=== PATIENT | male | born 1995 | race Caucasian/White ===

== ENCOUNTER 2019-11-30 12:44 | Outpatient (CLI) | payer BC ==
--- NOTE | 2019-11-30 13:50 | MRI ---
MR OF THE RIGHT KNEE WITHOUT CONTRAST INDICATION: 24-year-old male with concern for ACL rupture and MCL tear TECHNIQUE: Axial and coronal PD fat sat, sagittal T2 fat sat, sagittal PD turbo spin echo and T1 tyler nal images were obtained of the right knee. COMPARISON: Right knee radiograph dated November 09, 2019 FINDINGS: Joint effusion: Moderate size joint effusion Semimembranosus-medial gastrocnemius popliteal cyst: None. Ligaments: There is a grade 2 sprain involving the anterior and mid aspect of the MCL. The LCLC appea r intact. The ACL is completely disrupted. The PCL is intact. Extensor mechanism: Intact. Menisci: There is obliquely oriented horizontal tear involving the posterior junction and posterior r oot of the lateral meniscus. The medial meniscus appears intact. Articular cartilage: There is a pivot shift contusion involving the lateral femoral condyle and poste rior tibial plateau. There is also mild contusion involving the proximal fibular head. Osseous structures: As above Popliteus and IT band: Normal. IMPRESSION: 1. Complete ACL disruption. 2. Lateral meniscal tear 3. Grade 2 MCL sprain 4. Pivot shift contusion pattern of the lateral femoral condyle, posterior tibial plateau and proxima l fibular head.
== END 2019-11-30 12:45 | disposition home or self-care (01) ==
LOC: SCSMRI 12:44
PROVIDERS: ATTEND Orthopaedic Surgery
DX: S83.511A Sprain of anterior cruciate ligament of right knee, initial encounter (principal); S83.411A Sprain of medial collateral ligament of right knee, initial encounter; S83.281A Other tear of lateral meniscus, current injury, right knee, initial encounter; S80.01XA Contusion of right knee, initial encounter